=== PATIENT | female | born 1960 ===

== ENCOUNTER 2018-01-30 21:04 | Emergency (ER) | payer SELFPAY ==
[2018-01-30 21:34] VITALS: RESP 18; TEMP 98.6; O2SAT 99
[2018-01-30 22:27] VITALS: PULSE 78
[2018-01-30 23:10] LABS: BASO # 0.1 K/uL (0.0-0.2); BASO % 0.9 % (0.0-2.0); EOS # 0.2 K/uL (0.0-0.7); EOS % 2.6 % (0.0-4.0); HEMOGLOBIN 13.8 g/dL (11.0-16.0); LYMPH # 3.3 K/uL (1.0-4.3); LYMPH % 39.3 % (20.0-40.0); MEAN CELL VOLUME 84.5 fL (81.0-99.0); MEAN CORPUSCULAR HGB CONC 35.5 g/dL (33.0-37.0); MEAN PLATELET VOLUME 8.7 fL (7.2-11.7); MONO # 0.7 K/uL (0.0-0.8); MONO % 8.8 % (0.0-10.0); NEUT % 48.4 % (50.0-75.0); NRBC % 0.1 % (0.0-2.0); RBC 4.6 Mil/uL (3.80-5.20); RED CELL DISTRIBUTION WIDTH 13.1 % (11.5-14.5); WHITE BLOOD COUNT 8.3 K/uL (4.8-10.8)
[2018-01-30 23:28] LABS: ALB/GLOB RATIO 1.1 (1.0-2.1); ALBUMIN 4.2 g/dL (3.5-5.0); ALT/SGPT 29 U/L (9-52); AST/SGOT 25 U/L (14-36); BLOOD UREA NITROGEN 18 mg/dL (7-17); CALCIUM 9.4 mg/dl (8.6-10.4); GFR NON-AFRICAN AMERICAN > 60
[2018-01-31 00:13] VITALS: BP 156/87
--- NOTE | 2018-01-31 03:03 | C.PDOC ---
History Of Present Illness 57 y/o female presents to the ED for evaluation of elevated blood pressure. States she has been monitoring it at home. Patients only complaint is a mild headache. She denies any chest pain, SOB, dizziness, fever, or cough. Time Seen by Provider: 01/30/18 22:35 Chief Complaint (Nursing): High Blood Pressure History Per: Patient History/Exam Limitations: no limitations Onset/Duration Of Symptoms: Days Current Symptoms Are (Timing): Still Present Associated Symptoms: Headache Past Medical History Reviewed: Historical Data, Nursing Documentation, Vital Signs Vital Signs: Last Vital Signs Temp 98.6 F 01/30/18 21:30 Pulse 78 01/30/18 22:26 Resp 18 01/30/18 21:30 BP 156/87 H 01/31/18 00:13 Pulse Ox 99 01/30/18 21:30 - Medical History PMH: HTN Family History: States: No Known Family Hx - Social History Hx Alcohol Use: No Hx Substance Use: No - Immunization History Hx Tetanus Toxoid Vaccination: No Hx Influenza Vaccination: No Hx Pneumococcal Vaccination: No Review Of Systems Except As Marked, All Systems Reviewed And Found Negative. Constitutional: Negative for: Fever, Chills Eyes: Negative for: Vision Change Cardiovascular: Negative for: Chest Pain, Palpitations Respiratory: Negative for: Cough, Shortness of Breath Gastrointestinal: Negative for: Nausea, Vomiting Neurological: Positive for: Headache. Negative for: Weakness, Numbness, Incoordination, Change in Speech, Confusion, Dizziness Physical Exam - Physical Exam Appears: Non-toxic, No Acute Distress Skin: Normal Color, Warm, Dry Head: Atraumatic, Normacephalic Eye(s): bilateral: Normal Inspection, PERRL, EOMI Oral Mucosa: Moist Neck: Normal ROM Chest: Symmetrical Cardiovascular: Rhythm Regular, No Murmur Respiratory: Normal Breath Sounds, No Accessory Muscle Use Gastrointestinal/Abdominal: Soft, No Tenderness, No Distention Extremity: Bilateral: Atraumatic, Normal Color And Temperature, Normal ROM Neurological/Psych: Oriented x3, Normal Speech, Normal Cranial Nerves, Normal Motor, Normal Sensation Gait: Steady ED Course And Treatment - Laboratory Results Result Diagrams: 01/30/18 23:05 01/30/18 23:05 ECG: Interpreted By Me, Viewed By Me ECG Rhythm: Sinus Bradycardia Interpretation Of ECG: Left axis deviation Rate From EC O2 Sat by Pulse Oximetry: 99 - CT Scan/US Head CT Other Rad Studies (CT/US): Read By Radiologist, Radiology Report Reviewed CT/US Interpretation: Name:JORDI VELEZ Exam Date:Jan 30, 2018 11:11:55 PM EDT. Modality Type:CT. Description:CT - BRAIN. Gender:F Laterality:Not applicable. :60 Referring Physician:Dutch Singh (). EXAM: CT Head Without IV contrast. CLINICAL HISTORY: Headache. r/o ich. TECHNIQUE: Axial computed tomography images of the head/brain without intravenous contrast. 977.50 mGy-cm. COMPARISON: None provided. FINDINGS: BRAIN. No acute intraparenchymal hemorrhage. No mass lesion. No CT evidence for acute territorial infarct. No midline shift or extra-axial collections. VENTRICLES: No hydrocephalus. ORBITS: The orbits are unremarkable. SINUSES AND MASTOIDS: Right ethmoid sinusitis. The remaining visualized paranasal sinuses and mastoid air cells are clear. BONES: No fracture. IMPRESSION: No acute intracranial abnormality. . Electronically signed on Jan 30, 2018 11:32:49 PM EDT by: Dutch Parada M.D., ANTOINE Certified By ABR & CBC[employer]. Fellowship Trained MRI and CT Specialist Medical Decision Making Medical Decision Making: Impression: 57 yo female with elevated blood pressure Initial Plan: --EKG --Blood work --Chest x-ray --Toradol 30 mg IVP --Pending Head CT Negative CT and lab results discussed with patient. Counseled patient regarding diagnosis and advised to follow up with the clinic. Disposition Counseled Patient/Family Regarding: Studies Performed, Diagnosis, Need For Followup, Rx Given - Disposition Referrals: [facility] [Outside] [facility] [Outside] Disposition: HOME/ ROUTINE Disposition Time: 23:50 Condition: GOOD Additional Instructions: NATTY BACON, thank you for letting us take care of you today. Your provider was Dutch Singh DO and you were treated for HIGH BLOOD PRESSURE. The emergency medical care you received today was directed at your acute symptoms. If you were prescribed any medication, please fill it and take as directed. It may take several days for your symptoms to resolve. Return to the Emergency Department if your symptoms worsen, do not improve, or if you have any other problems. Please contact your doctor or call one of the physicians/clinics you have been referred to that are listed on the Patient Visit Information form that is included in your discharge packet. Bring any paperwork you were given at discharge with you along with any medications you are taking to your follow up visit. Our treatment cannot replace ongoing medical care by a primary care provider outside of the emergency department. Thank you for allowing the [facility] team to be part of your care today. Follow up with the clinic in 2-3 days for re-evaluation and further management. NATTY ROSIE BACON, shilpa por dejarnos cuidar de usted herrera. Christianson proveedor fue Dutch Passafaro DO y fue tratado por PRESIN ARTERIAL ISABELLA. La atencin mdica de emergencia que recibi hoy se dirigi a eldon sntomas agudos. Si le recetaron algn medicamento, llnelo y tmelo segn las indicaciones. Los sntomas pueden tardar varios melendrez en resolverse. Regrese al Departamento de Emergencias si eldon sntomas empeoran, no mejoran o si tiene otros problemas. Comunquese con christianson mdico o llame a rick de los mdicos / clnicas a los que smith sido referido que figuran en el formulario de Informacin de visita al paciente que se incluye en christianson paquete de isabella. Lleve con usted a christianson consulta de seguimiento toda la documentacin que recibi del isabella junto con los medicamentos que est tomando. Nuestro tratamiento no puede reemplazar la atencin mdica continua por parte de un proveedor de atencin primaria fuera del departamento de emergencias. Shilpa por permitir que el equipo de [facility] sea parte de christianson atencin hoy. Ezequiel un seguimiento con la clnica en 2-3 melendrez para patricio reevaluacin y manejo adicional. Prescriptions: Ibuprofen [Motrin] 600 mg PO Q6 PRN #20 tab PRN Reason: Pain, Moderate (4-7) Instructions: High Blood Pressure in Adults Forms: Gen Discharge Inst Moldovan, [facility] (Moldovan) Print Language: HONG KONGER - POA Present On Arrival: None - Clinical Impression Clinical Impression: Hypertension - Scribe Statement The provider has reviewed the documentation as recorded by the Scribe (Cecilia Willson) Provider Attestation: All medical record entries made by the Scribe were at my direction and personal ly dictated by me. I have reviewed the chart and agree that the record accurately reflects my personal performance of the history, physical exam, medical decision making, and the department course for this patient. I have also personally directed, reviewed, and agree with the discharge instructions and disposition.
--- NOTE | 2018-01-31 06:59 | CT ---
Date of service: 01/30/2018 PROCEDURE: CT HEAD WITHOUT CONTRAST. HISTORY: Headache. COMPARISON: None available. TECHNIQUE: Axial computed tomography images were obtained through the head/brain without intravenous contrast. Radiation dose: Total exam DLP = 977 mGy-cm. This CT exam was performed using one or more of the following dose reduction techniques: Automated exposure control, adjustment of the mA and/or kV according to patient size, and/or use of iterative reconstruction technique. FINDINGS: HEMORRHAGE: No intracranial hemorrhage. BRAIN: No mass effect or edema. No atrophy or chronic microvascular ischemic changes. Punctate hypodensity in the left basal ganglia may represent a prominent perivascular space. VENTRICLES: Unremarkable. No hydrocephalus. CALVARIUM: Unremarkable. PARANASAL SINUSES: Right ethmoid and sphenoid sinusitis. MASTOID AIR CELLS: Unremarkable as visualized. No inflammatory changes. OTHER FINDINGS: None. IMPRESSION: No acute intracranial abnormality. Right ethmoid and sphenoid sinusitis. If symptoms persist, consider correlation with MRI. These findings were preliminarily reported at 11:32 p.m. on 01/30/[address] Dutch Parada from [facility].
--- NOTE | 2018-01-31 08:52 | RAD ---
Chest x-ray single frontal view HISTORY: Chest pain. COMPARISON: None available. FINDINGS: No focal infiltrate or effusion. Heart size within normal limits. Impression: No focal infiltrate or effusion.
--- NOTE | 2018-02-01 12:28 | CARD ---
APPROVED REPORT Date of service: 01/30/2018 EKG Measurement Heart [id number] <Conclusion> Sinus bradycardia Moderate voltage criteria for LVH, may be normal variant Borderline ECG
== END 2018-01-31 00:35 | disposition home or self-care (01) ==
LOC: SUPCPDRO 21:04 → C.ER 21:04
DX: I10 Essential (primary) hypertension (principal)
CPT/HCPCS: 70450; 71045; 80053; 84484; 85025; 93005; 96374; 99284; J1885